=== PATIENT | female | born 1980 | race Caucasian/White ===

== ENCOUNTER 2016-11-08 10:58 | Emergency (ER) | payer MEDICAID ==
[2016-11-08 11:05] VITALS: TEMP 98.4
--- NOTE | 2016-11-08 11:52 | EDPHY ---
H & P Time Seen by Provider: 11/08/16 11:42 HPI/ROS: CHIEF COMPLAINT: Heroin withdrawal HISTORY OF PRESENT ILLNESS: The patient is a 36-year-old female presenting with heroin withdrawal. The patient has previously withdrawn from heroin in the past and states she usually has diarrhea. She last used heroin 24 hours ago. She was at the addiction recovery center last night. Today she developed chills, body aches, and cold sweats. No vomiting or diarrhea. REVIEW OF SYSTEMS: A comprehensive 10 point review of systems is otherwise negative aside from elements mentioned in the history of present illness. Past Medical/Surgical History: Polysubstance abuse. Social History: Heroin abuse, Methamphetamine abuse, Cigarette smoker, Recently incarcerated. Smoking Status: Current every day smoker Physical Exam: General Appearance: Alert, pleasant Eyes: Pupils equal and round, no conjunctival pallor or injection ENT, Mouth: Mucous membranes moist Neck: Normal inspection Respiratory: Lungs are clear to auscultation Cardiovascular: Regular rate and rhythm. No murmur. Gastrointestinal: Abdomen is soft and non-tender Neurological: A&O, nonfocal, normal gait Skin: Multiple scabbed over lesions. No erythema or sites of active infection. No piloerection. Extremities: Nontender, no pedal edema Psychiatric: Mood and affect normal Constitutional: Initial Vital Signs Temperature (C) 36.9 C 11/08/16 11:02 Heart Rate 92 11/08/16 11:02 Respiratory Rate 18 11/08/16 11:02 Blood Pressure 133/91 H 11/08/16 11:02 O2 Sat (%) 94 11/08/16 11:02 O2 Delivery Mode Room Air Allergies/Adverse Reactions: acetaminophen [From Darvocet-N 100] Allergy (Severe, Verified 11/08/16 11:01) Hives propoxyphene napsylate [From Darvocet-N 100] Allergy (Severe, Verified 11/08/16 11:01) Hives Sulfa (Sulfonamide Antibiotics) Allergy (Severe, Verified 11/08/16 11:01) Rash tramadol [Tramadol] Allergy (Severe, Verified 11/08/16 11:01) Seizure Home Medications: Medication Instructions Recorded clonIDINE [Catapres (*)] 0.1 mg PO BID #14 tab 11/08/16 Medical Decision Making ED Course/Re-evaluation: The patient has history of polysubstance abuse. She is here today for heroin withdrawal. The patient last used heroin 24 hours ago. She complains of chills, body aches, and cold sweats. Plan to discharge patient home with clonidine to help with opioid withdrawal. Patient has had this in the past and states it helps her symptoms. Departure - Departure Disposition: Home, Routine, Self-Care Clinical Impression: Opioid withdrawal Condition: Good Instructions: Opioid Withdrawal (ED) Additional Instructions: Please followup with your primary care physician. Take Clonidine as directed. Return to the emergency department with new or worsening symptoms. Referrals: Yael Freedman MD [Primary Care Provider] - As per Instructions Prescriptions: clonIDINE [Catapres (*)] 0.1 mg PO BID #14 tab Report Scribed for: Lorene Mayen Report Scribed by: Josie Olson Date of Report: 11/08/16 Time of Report: 11:52 Physician Review and Approval Statement: 11/08/16 11:52 Portions of this note were transcribed by a medical technologist chief. I personally performed the history, physical exam, and medical decision-making; and confirmed the accuracy of the information in the transcribed note.
[2016-11-08 12:37] VITALS: BP 133/88; PULSE 80; RESP 16; O2SAT 95
== END 2016-11-08 12:38 | disposition home or self-care (01) ==
DX: F11.23 Opioid dependence with withdrawal (principal); F17.210 Nicotine dependence, cigarettes, uncomplicated

== ENCOUNTER 2017-03-14 16:58 | Emergency (ER) | payer MEDICAID ==
[2017-03-14 17:24] VITALS: TEMP 98.4
--- NOTE | 2017-03-14 18:37 | EDPHY ---
H & P Time Seen by Provider: 03/14/17 17:15 HPI/ROS: CHIEF COMPLAINT: Head wounds History by patient HISTORY OF PRESENT ILLNESS: 37-year-old woman with a history of IV methamphetamine use presents complaining of abscesses on her scalp. Patient states that she last used about 2 weeks ago. She denies skin popping or injecting into her scalp but does states that she has had abscesses on her forehead before. She says she was felt bumps on her scalp shortly after using the methamphetamine but they continued to grow and she has tried lancing them with straight pins but there has been no drainage. She denies skin picking or skin popping. She denies any fever chills. She has a history of MRSA in the past. REVIEW OF SYSTEMS: As in HPI, and all other systems reviewed and are negative Smoking Status: Current every day smoker Physical Exam: General Appearance: Alert and no distress. Head: normocephalic, atraumatic, positive 2 x 2 cm abscess with central fluctuance and induration on the edges and minimal surrounding erythema on left parietal area and 1.5 x 2 cm abscess with central fluctuance and minimal surrounding erythema on right parietal area Eyes: Pupils equal and round no injection. Ears: TM clear bilat Lymph: bilateral tender postauricular lymphadenopathy OP: mucus membranes moist, no tonsillar enlargement, no exudates Neck: no meningismus, no cervical nodes, no submandibular nodes Skin: Multiple well-healed scars on face, and as described above Constitutional: Initial Vital Signs Temperature (C) 36.9 C 03/14/17 17:19 Heart Rate 112 H 03/14/17 17:19 Respiratory Rate 20 03/14/17 17:19 Blood Pressure 139/88 H 03/14/17 17:19 O2 Sat (%) 96 03/14/17 17:19 O2 Delivery Mode Room Air Allergies/Adverse Reactions: acetaminophen [From Darvocet-N 100] Allergy (Severe, Verified 03/14/17 17:15) Hives propoxyphene napsylate [From Darvocet-N 100] Allergy (Severe, Verified 03/14/17 17:15) Hives Sulfa (Sulfonamide Antibiotics) Allergy (Severe, Verified 03/14/17 17:15) Rash tramadol [Tramadol] Allergy (Severe, Verified 03/14/17 17:15) Seizure Home Medications: Medication Instructions Recorded clonIDINE [Catapres (*)] 0.1 mg PO BID #14 tab 11/08/16 Clindamycin HCl [Clindamycin] 300 mg PO TID #30 cap 03/14/17 METHADONE HCL 03/14/17 Neurontin 03/14/17 MDM/Departure - MDM Procedures: Procedure: Abscess drainage. The patient's abscess was located on the left parietal area. The area was anesthetized with 0.5% Marcaine with epinephrine. The skin was cleaned with chlorhexidine. I obtained verbal consent from the patient to drain the abscess who was informed about the possibility of bleeding and pain. The abscess was incised with an 11 blade scalpel and a small amount of purulent drainage was expressed. I broke up loculations and placed some packing. The patient tolerated the procedure well. The procedure was performed by myself. There were no complications. Procedure: Abscess drainage. The patient's abscess was located on the right parietal area. The area was anesthetized with 0.5% Marcaine with epinephrine. The skin was cleaned with chlorhexidine. I obtained verbal consent from the patient to drain the abscess who was informed about the possibility of bleeding and pain. The abscess was incised with an 11 blade scalpel and a small amount of purulent drainage was expressed. I broke up loculations and placed some packing. The patient tolerated the procedure well. The procedure was performed by myself. There were no complications. ED Course/Re-evaluation: 37-year-old woman presents with bilateral scalp abscesses and associated posterior auricular adenopathy. Patient has a history of MRSA and IV drug use. Abscesses were incised and drained and packed. Patient was started on oral Bactrim. She will follow up with her primary care physician for packing change and recheck. - Depart Disposition: Home, Routine, Self-Care Clinical Impression: Scalp abscess, MRSA (methicillin resistant Staphylococcus aureus) Condition: Good Instructions: Abscess (ED) Additional Instructions: You were seen by Dr. Marisol Suarez today. Take antibiotics as prescribed. Please have the packing changed with your primary care physician Dr. Freedman in 24 hours. Return for any fever or worsening. Stop doing meth! It will kill you! Return for any worsening or new concerns. Prescriptions: Clindamycin HCl [Clindamycin] 300 mg PO TID #30 cap Referrals: Yael Freedman MD [Primary Care Provider] - As per Instructions
[2017-03-14 19:14] VITALS: BP 122/81; PULSE 100; RESP 16; O2SAT 94
== END 2017-03-14 19:14 | disposition home or self-care (01) ==
LOC: CED 16:58
DX: L02.811 Cutaneous abscess of head [any part, except face] (principal); B95.62 Methicillin resistant Staphylococcus aureus infection as the cause of diseases classified elsewhere; F17.200 Nicotine dependence, unspecified, uncomplicated

== ENCOUNTER 2017-03-15 18:35 | Emergency (ER) | payer MEDICAID ==
[2017-03-15 18:47] VITALS: O2SAT 95
--- NOTE | 2017-03-15 19:01 | EDPHY ---
H & P Stated Complaint: wound recheck Time Seen by Provider: 03/15/17 18:54 HPI/ROS: CHIEF COMPLAINT: Dressing change HISTORY OF PRESENT ILLNESS: The patient is a 37-year-old female who comes to the emergency department for dressing change. She has abscesses to bilateral parietal regions of her head. She is an IV drug user with a history of MR . She was seen here yesterday and had the abscesses drained and was started on clindamycin. She has been doing much better but does complain of pain. REVIEW OF SYSTEMS: Constitutional: denies: chills, fever, recent illness, recent injury EENTM: denies: blurred vision, double vision, nose congestion Respiratory: denies: cough, shortness of breath Cardiac: denies: chest pain, irregular heart rate, lightheadedness, palpitations Gastrointestinal/Abdominal: denies: abdominal pain, diarrhea, nausea, vomiting, blood streaked stools Genitourinary: denies: dysuria, frequency, hematuria, pain Musculoskeletal: denies: joint pain, muscle pain Skin: See HPI Neurological: denies: headache, numbness, paresthesia, tingling, dizziness, weakness Hematologic/Lymphatic: denies: blood clots, easy bleeding, easy bruising Immunologic/allergic: denies: HIV/AIDS, transplant EXAM: GENERAL: Well-appearing, well-nourished and in no acute distress. HEAD: Atraumatic, normocephalic. EYES: Pupils equal round and reactive to light, extraocular movements intact, sclera anicteric, conjunctiva are normal. ENT: TMs normal, nares patent, oropharynx clear without exudates. Moist mucous membranes. NECK: Normal range of motion, supple without lymphadenopathy or JVD. LUNGS: Breath sounds clear to auscultation bilaterally and equal. No wheezes rales or rhonchi. HEART: Regular rate and rhythm without murmurs, rubs or gallops. ABDOMEN: Soft, nontender, normoactive bowel sounds. No guarding, no rebound. No masses appreciated. BACK: No CVA tenderness, no spinal tenderness, step-offs or deformities EXTREMITIES: Normal range of motion, no pitting or edema. No clubbing or cyanosis. NEUROLOGICAL: Cranial nerves II through XII grossly intact. Normal speech, normal gait. 5/5 strength, normal movement in all extremities, normal sensation PSYCH: Normal mood, normal affect. SKIN: Abscess stool scalp moderate in size, abscess to right scalp small. Packing in place. Source: Patient Exam Limitations: No limitations - Personal History Current Tetanus/Diphtheria Vaccine: Yes Current Tetanus Diphtheria and Acellular Pertussis (TDAP): Yes Tetanus Vaccine Date: WITHIN 10 YRS - Medical/Surgical History Hx Asthma: Yes Hx Chronic Respiratory Disease: No Hx Diabetes: No Hx Cardiac Disease: No Hx Renal Disease: No Hx Cirrhosis: No Hx Alcoholism: No Hx HIV/AIDS: No Hx Splenectomy or Spleen Trauma: No Other PMH: FIBROMYALGIA, C/S, opiate dependancy. - Family History Significant Family History: No pertinent family hx - Social History Smoking Status: Current every day smoker Alcohol Use: Heavy Drug Use: Other Constitutional: Initial Vital Signs Temperature (C) 36.5 C 03/15/17 18:46 Heart Rate 90 03/15/17 18:46 Respiratory Rate 18 03/15/17 18:46 Blood Pressure 113/97 H 03/15/17 18:46 O2 Sat (%) 95 03/15/17 18:46 O2 Delivery Mode Room Air Allergies/Adverse Reactions: acetaminophen [From Darvocet-N 100] Allergy (Severe, Verified 03/15/17 18:45) Hives propoxyphene napsylate [From Darvocet-N 100] Allergy (Severe, Verified 03/15/17 18:45) Hives Sulfa (Sulfonamide Antibiotics) Allergy (Severe, Verified 03/15/17 18:45) Rash tramadol [Tramadol] Allergy (Severe, Verified 03/15/17 18:45) Seizure Home Medications: Medication Instructions Recorded clonIDINE [Catapres (*)] 0.1 mg PO BID #14 tab 11/08/16 Clindamycin HCl [Clindamycin] 300 mg PO TID #30 cap 03/14/17 METHADONE HCL 03/14/17 Neurontin 03/14/17 Medical Decision Making ED Course/Re-evaluation: I removed the packing from both wounds. There is a moderate amount of packing in the left abscess and a minimal amount in the right. The abscesses are wide open. We did offer to irrigate further but the patient declined. I encouraged her to take a shower at home. I do not think they need to be repacked. She was asking for pain medication and we reviewed are nonnarcotic policy. I encouraged her to take ibuprofen and Tylenol. Differential Diagnosis: Partial list of the Differential diagnosis considered include but were not limited to; abscess, MRSA, cellulitis and although unlikely based on the history and physical exam, I also considered intracranial infection, trauma. I discussed these differential diagnoses and the plan with the patient as well as the usual and expected course. The patient understands that the diagnosis is provisional and that in medicine we are not always correct and that further workup is often warranted. Usual and customary warnings were given. All of the patient's questions were answered. The patient was instructed to return to the emergency department should the symptoms at all worsen or return, otherwise to followup with the physician as we discussed. Departure - Departure Disposition: Home, Routine, Self-Care Clinical Impression: Dressing change or removal, surgical wound Condition: Fair Instructions: Abscess (ED) Referrals: Yael Freedman MD [Primary Care Provider] - 1-2 days without fail
[2017-03-15 19:07] VITALS: BP 110/67; PULSE 62; RESP 20; TEMP 98.1
== END 2017-03-15 19:07 | disposition home or self-care (01) ==
LOC: CED 18:35
DX: Z48.01 Encounter for change or removal of surgical wound dressing (principal); J45.909 Unspecified asthma, uncomplicated; F17.200 Nicotine dependence, unspecified, uncomplicated

== ENCOUNTER 2018-06-25 18:41 | Emergency (ER) | payer MEDICAID ==
[2018-06-25] MEDS ORDERED: PROPARACAINE 0.5% 15 ML OPHT DROP ONE (18:51)
[2018-06-25 18:55] VITALS: BP 120/85
[2018-06-25] MEDS ORDERED: PROPARACAINE 0.5% 15 ML OPHT DROP LEFTEYE ONE (18:57)
--- NOTE | 2018-06-25 19:34 | EDPHY ---
H & P Time Seen by Provider: 06/25/18 18:44 HPI/ROS: This patient complains of left eye pain after keeping her contact in overnight. She normally takes amount at night. She reports redness to the eye and some tearing to the eye. She also describes mild photophobia. Finally, she reports slight blurring to the affected eye. No right eye symptoms. ROS: Constitutional: No fevers Integumentary: No other skin lesions except in acne to her face HEENT: No recent cold sores. No trauma to the eye 5 point review of symptoms is performed and otherwise negative with exception of pertinent positives and negatives listed in HPI and ROS Smoking Status: Current every day smoker Physical Exam: Physical Exam Vital signs are normal. General: No acute distress HEENT: Atraumatic. Eyes: Pupils equal and react to light. Extraocular motions are intact. There is conjunctival injection. No active discharge at this time. On slit-lamp exam there is a small mm or 2 corneal ulcer at 7:00 a.m. On the clock face. Mild corneal edema is present. No stellate lesions. Anterior chamber appears normal lids and lashes are normal. Cardiac: Brisk capillary refill is intact throughout. Skin: No rash or pallor. Mild acne to the face. Neuro: Alert and oriented x3 with no sensorimotor deficits. Initial differential diagnosis: Corneal ulcer, keratitis, conjunctivitis, corneal abrasion Constitutional: Initial Vital Signs Temperature (C) 37.0 C 06/25/18 18:46 Heart Rate 98 06/25/18 18:46 Respiratory Rate 16 06/25/18 18:46 Blood Pressure 120/85 H 06/25/18 18:46 O2 Sat (%) 98 06/25/18 18:46 Allergies/Adverse Reactions: propoxyphene napsylate [From Darvocet-N 100] Allergy (Severe, Verified 03/15/17 18:45) Hives Sulfa (Sulfonamide Antibiotics) Allergy (Severe, Verified 03/15/17 18:45) Rash tramadol [Tramadol] Allergy (Severe, Verified 03/15/17 18:45) Seizure Home Medications: Medication Instructions Recorded METHADONE HCL 03/14/17 Gatifloxacin 0.5% [Zymaxid 0.5%] 1 drop OP TID #1 opht.btl 06/25/18 MDM/Departure - MDM Medications Given: Discontinued Medications Proparacaine HCl (Alcaine 0.5%) 1 drops LEFTEYE ONCE ONE Stop: 06/25/18 18:58 Last Admin: 06/25/18 19:00 Dose: 2 drops ED Course/Re-evaluation: This patient will start on gatifloxacin eyedrops, take ibuprofen Tylenol for pain control as needed. She will follow up with Ophthalmology if not improved - Depart Disposition: Home, Routine, Self-Care Clinical Impression: Corneal ulcer Qualifiers: Laterality: left Qualified Code(s): H16.002 - Unspecified corneal ulcer, left eye Condition: Good Instructions: Corneal Ulcer (ED) Additional Instructions: Diagnosis: Corneal ulcer Plan: Do not user contacts for the next 7-10 days Use eyeglasses instead Antibiotic eye drops as prescribed Ibuprofen Tylenol for pain control as needed Follow-up with the eye physician if your symptoms are not improving over the next 3-5 days with treatment plan. Prescriptions: Gatifloxacin 0.5% [Zymaxid 0.5%] 1 drop OP TID #1 opht.btl Referrals: Yael Freedman MD [Primary Care Provider] - As per Instructions Sia Salcedo MD [Medical Doctor] - As per Instructions
== END 2018-06-25 19:46 | disposition home or self-care (01) ==
LOC: CED 18:41
DX: H16.002 Unspecified corneal ulcer, left eye (principal)
CPT/HCPCS: 99283-ER

== ENCOUNTER 2018-11-28 18:07 | Emergency (ER) | payer OTHER, MEDICAID | END 2018-11-28 19:21 ==